=== PATIENT | female | born 1955 | race Two or more races ===

== ENCOUNTER 2016-11-16 11:14 | Emergency (ER) | payer MEDICAID ==
[~2016-11-16] VITALS: Ht 157.5 cm; Wt 69.4 kg
[~2016-11-16 11:14] MED LIST: CAPT50TA PO
[2016-11-16 11:49] VITALS: BP 150/96
== END 2016-11-16 12:06 | disposition home or self-care (01) ==
LOC: ER 11:14
DX: I10 Essential (primary) hypertension (principal); Z76.0 Encounter for issue of repeat prescription; Z90.49 Acquired absence of other specified parts of digestive tract; Z87.442 Personal history of urinary calculi
CPT/HCPCS: 93005

== ENCOUNTER 2017-05-31 22:29 | Emergency (ER) | payer MEDICAID ==
[~2017-05-31] VITALS: Ht 157.5 cm; Wt 68.0 kg
[~2017-05-31 22:29] MED LIST changes: -CAPT50TA PO; +CAPT50TA5 PO
[2017-05-31] MEDS ORDERED: cloNIDine HCL 0.1 MG TAB ONE (22:41)
[2017-05-31 22:51] VITALS: BP 187/101
[2017-05-31] MEDS ORDERED: cloNIDine HCL 0.1 MG TAB PO ONE (23:00)
[2017-05-31 23:13] LABS: Basophils # (auto) 0 uL; Basophils % (auto) 0.8 % (0.0-2.0); Eosinophils # (auto) 0.3 uL; Eosinophils % (auto) 4.5 % (0.0-7.0); Hemoglobin 14.1 g/dL (12.2-16.2); Lymphocytes # (auto) 2.7 uL; Lymphocytes % (auto) 43.7 % (10.0-50.0); Mean Corpuscular Hemoglobin 30.6 pg (28.0-32.0); Mean Corpuscular Hgb Conc. 35.2 g/dL (32.0-36.0); Mean Platelet Volume 7.7 fL (6.9-10.8); Monocytes # (auto) 0.4 uL; Monocytes % (auto) 5.8 % (0.0-12.0); Neutrophils # (auto) 2.8 uL; Neutrophils % (auto) 45.2 % (37.0-80.0); Nucleated Red Blood Cells % 0.1 %; Platelet Count (auto) 236 10^3/uL (140-450); Red Cell Distribution Width 12.1 % (11.8-14.3); White Blood Cell 6.1 10^3/uL (4.4-10.8)
[2017-05-31 23:28] LABS: INR 0.92 (0.9-1.15)
[2017-05-31 23:32] LABS: Anion Gap 10 (5-15); Aspartate Aminotransferase 24 U/L (15-37); BUN/Creatinine Ratio 27.9; Blood Urea Nitrogen 19 mg/dL (7-18); Calcium 9.1 mg/dL (8.5-10.1); Carbon Dioxide 28 mmol/L (21-32); Chloride 104 mmol/L (98-107); GFR African American 114 mL/min; GFR Non-African American 94 mL/min; Glucose 101 mg/dL (74-106); Potassium 3.8 mmol/L (3.5-5.1); Sodium 142 mmol/L (136-145)
[2017-05-31 23:36] LABS: Alkaline Phosphatase 130 U/L (45-117); Bilirubin, Total 0.4 mg/dL (0.2-1.0); Total Protein 7.9 g/dL (6.4-8.2)
[2017-05-31 23:40] LABS: B-Type Natriuretic Peptide 60.28 pg/mL (0-100)
[2017-06-01 00:12] LABS: Temperature: 23.9 C (20.0-25.0)
== END 2017-06-01 02:56 | disposition left against medical advice (07) ==
LOC: ER 22:31
DX: R07.9 Chest pain, unspecified (principal); Z53.21 Procedure and treatment not carried out due to patient leaving prior to being seen by health care provider; R51 Headache
CPT/HCPCS: 36415; 70450; 71020; 80053; 83880; 84484; 85025; 85610; 85730; 93005

== ENCOUNTER 2017-11-05 11:27 | Emergency (ER) | payer MEDICAID ==
[~2017-11-05] VITALS: Ht 157.5 cm; Wt 68.0 kg
[2017-11-05 11:54] VITALS: BP 168/94
[2017-11-05] MEDS ORDERED: IBUPROFEN 800 MG TAB PO ONE (12:15)
[2017-11-05] MEDS ORDERED: cefTRIAXone SOD 1,000 MG VL IM ONE ×2 (13:30→13:45)
[2017-11-05] MEDS ORDERED: TETANUS-DIPTH-ACEL PERTUSSIS 0.5ML SYRG IM ONE (13:45)
== END 2017-11-05 14:00 | disposition home or self-care (01) ==
LOC: ER 11:27
DX: S51.051A Open bite, right elbow, initial encounter (principal); I10 Essential (primary) hypertension; W54.0XXA Bitten by dog, initial encounter; Y93.89 Activity, other specified; Y92.89 Other specified places as the place of occurrence of the external cause; Y99.8 Other external cause status
CPT/HCPCS: 73080; 90471; 90715; 96372; 99284; J0696

== ENCOUNTER 2018-07-12 22:56 | Emergency (ER) | payer MEDICAID ==
[~2018-07-12] VITALS: Ht 154.9 cm; Wt 68.0 kg
[~2018-07-12 22:56] MED LIST changes: +METO25TA62 PO
[2018-07-12 23:42] LABS: Basophils # (auto) 0 uL; Basophils % (auto) 0.5 % (0.0-2.0); Eosinophils # (auto) 0.2 uL; Eosinophils % (auto) 3.9 % (0.0-7.0); Hematocrit 40.2 % (36.0-46.0); Hemoglobin 14.1 g/dL (12.2-16.2); Lymphocytes # (auto) 2.6 uL; Lymphocytes % (auto) 48.5 % (10.0-50.0); Mean Corpuscular Hemoglobin 30.9 pg (28.0-32.0); Mean Corpuscular Volume 88.2 fL (80.0-100.0); Monocytes # (auto) 0.3 uL; Monocytes % (auto) 6.1 % (0.0-12.0); Neutrophils # (auto) 2.2 uL; Nucleated Red Blood Cells % 0.1 %; Platelet Count (auto) 232 10^3/uL (140-450); Red Blood Cells 4.56 10^6/uL (4.0-5.20); Red Cell Distribution Width 12.5 % (11.8-14.3); White Blood Cell 5.4 10^3/uL (4.4-10.8)
[2018-07-13 00:02] LABS: Albumin 3.8 g/dL (3.4-5.0); Anion Gap 7 (5-15); Blood Urea Nitrogen 18 mg/dL (7-18); Calcium 8.7 mg/dL (8.5-10.1); Carbon Dioxide 25 mmol/L (21-32); Chloride 107 mmol/L (98-107); Glucose 115 mg/dL (74-106); Magnesium 2.4 mg/dL (1.6-2.6); Potassium 3.8 mmol/L (3.5-5.1); Sodium 139 mmol/L (136-145)
[2018-07-13 00:03] LABS: Alanine Aminotransferase 66 U/L (13-56); Aspartate Aminotransferase 33 U/L (15-37); GFR African American 101 mL/min; GFR Non-African American 83 mL/min
[2018-07-13 00:09] LABS: Alkaline Phosphatase 102 U/L (45-117); Bilirubin, Total 0.5 mg/dL (0.2-1.0); Total Protein 7.8 g/dL (6.4-8.2)
[2018-07-13 05:15] LABS: Urine Bacteria NONE SEEN /hpf (None Seen); Urine Blood Negative /uL (Negative); Urine Specific Gravity 1.009 (1.001-1.035); Urine WBC <1 /hpf (0 - 5)
[2018-07-13] MEDS ORDERED: cloNIDine HCL 0.1 MG TAB PO ONE (06:45)
[2018-07-13 07:13] VITALS: BP 156/94
== END 2018-07-13 08:09 | disposition home or self-care (01) ==
LOC: ER 23:00
DX: I10 Essential (primary) hypertension (principal); Z90.49 Acquired absence of other specified parts of digestive tract
CPT/HCPCS: 36415; 71045; 80053; 81001; 83735; 84484; 85025; 93005

== ENCOUNTER 2020-05-23 13:05 | Emergency (ER) | payer MEDICAID ==
[~2020-05-23] VITALS: Ht 154.9 cm; Wt 71.7 kg
[~2020-05-23 13:05] MED LIST changes: -METO25TA62 PO; +METO25TA93 PO
[2020-05-23 16:15] VITALS: BP 172/87
== END 2020-05-23 17:09 | disposition home or self-care (01) ==
LOC: ER 13:05
DX: I10 Essential (primary) hypertension (principal)

== ENCOUNTER 2022-03-28 20:49 | Emergency (ER) | payer MEDICAID ==
[~2022-03-28] VITALS: Ht 165.1 cm; Wt 75.0 kg
[2022-03-28] MEDS ORDERED: ACETAMINOPHEN 325 MG TAB PO ONE ×2 (21:13→21:15)
[2022-03-29 04:47] VITALS: BP 122/78
== END 2022-03-29 05:51 | disposition left against medical advice (07) ==
LOC: EDBD 20:49 → ER 20:49
DX: R50.9 Fever, unspecified (principal); R53.1 Weakness; M79.10 Myalgia, unspecified site; R11.2 Nausea with vomiting, unspecified; R06.02 Shortness of breath; R07.89 Other chest pain; I10 Essential (primary) hypertension; Z90.49 Acquired absence of other specified parts of digestive tract; Z79.899 Other long term (current) drug therapy
CPT/HCPCS: 71045